=== PATIENT | male | born 1970 | race American Indian/Alaskan Native ===

== ENCOUNTER 2019-11-04 09:34 | Outpatient (CLI) | payer OTHER | END 2019-11-04 09:35 | disposition home or self-care (01) | LOC: LABHHL 09:34 | PROVIDERS: ATTEND Family Medicine | DX: R07.9 Chest pain, unspecified (principal) | CPT/HCPCS: 36415; 84484 ==

== ENCOUNTER 2020-08-12 15:21 | Inpatient (IN) | payer OTHER ==
[2020-08-12] MEDS ORDERED: HEPARIN 1,000 UNIT/1 ML VIAL IV ONE (15:24)
[2020-08-12] MEDS ORDERED: SODIUM CHLORIDE 0.9% 1000 ML 1,000 ML IV ONE (15:24)
[2020-08-12] MEDS ORDERED: MORPHINE 4 MG/1 ML INJ IV ONE (15:25)
--- NOTE | 2020-08-12 15:28 | Emergency Department Report ---
ED Chest Pain HPI - General Stated Complaint: STEMI PUI?: No Time Seen by Provider: 08/12/20 15:24 Source: patient, EMS - History of Present Illness Initial Comments: Patient is a 50-year-old F [place] male with past medical history of hypertension and tobacco use who is presenting with chest pain. Patient states he just got off work and was on his way home and started having chest pain. Chest pain started approximately 30 to 40 minutes prior to his arrival. States he did have some associated shortness of breath and mild diaphoresis. EMS transmitted EKG which does not appear as though the patient is having a STEMI. Patient states he has had some mild shortness chest pain or shortness of breath with exertion for the past 3 to 4 days. Severity scale (0 -10): 6 Quality: tightness, heaviness Consistency: constant Improves With: nothing re: diaphoresis. denies: nausea, vomting Other Symptoms: denies: cough, fever, syncope, rash, acid taste in mouth Treatments Prior to Arrival: aspirin, oxygen - Related Data Home Medications Medication Instructions Recorded Confirmed Last Taken Aspirin 325 mg PO DAILY 01/04/14 01/04/14 01/04/14 Metoprolol [Lopressor TAB] 50 mg PO BID 01/04/14 01/04/14 01/04/14 Simvastatin 10 mg PO HS 01/04/14 01/04/14 01/04/13 lisinopriL [Zestril TAB] 20 mg PO BID 01/04/14 01/04/14 01/04/13 Previous Rx's Medication Instructions Recorded Last Taken Type Lisinopril/Hydrochlorothiazide 1 tab PO QDAY #90 tablet 01/04/14 Unknown Rx [Zestoretic 20-25 mg] Allergies Allergy/AdvReac Type Severity Reaction Status Date / Time No Known Allergies Allergy Unverified 01/04/14 02:23 Heart Score - HEART Score History: Highly suspicious EKG: Significant ST-depression Age: 45-65 Risk factors: 1-2 risk factors Troponin: < normal limit HEART Score: 6 ED Review of Systems ROS: Stated complaint: STEMI Other details as noted in HPI Comment: All other systems reviewed and negative ED Past Medical Hx - Past Medical History Hx Hypertension: Yes (noncompliant with meds) - Social History Smoking Status: Current Every Day Smoker Substance Use Type: Marijuana, Non Opiate Pain - Medications Home Medications: Home Medications Medication Instructions Recorded Confirmed Last Taken Type Aspirin 325 mg PO DAILY 01/04/14 01/04/14 01/04/14 History Lisinopril/Hydrochlorothiazide 1 tab PO QDAY #90 tablet 01/04/14 Unknown Rx [Zestoretic 20-25 mg] Metoprolol [Lopressor TAB] 50 mg PO BID 01/04/14 01/04/14 01/04/14 History Simvastatin 10 mg PO HS 01/04/14 01/04/14 01/04/13 History lisinopriL [Zestril TAB] 20 mg PO BID 01/04/14 01/04/14 01/04/13 History ED Physical Exam - General General appearance: alert, in no apparent distress - Head Head exam: Present: atraumatic, normocephalic - Eye Eye exam: Present: normal appearance, PERRL, EOMI - ENT ENT exam: Present: mucous membranes moist - Neck Neck exam: Present: normal inspection - Respiratory Respiratory exam: Present: normal lung sounds bilaterally. Absent: respiratory distress, wheezes, rales, rhonchi - Cardiovascular Cardiovascular Exam: Present: regular rate, normal rhythm. Absent: systolic murmur, diastolic murmur, rubs, gallop - GI/Abdominal GI/Abdominal exam: Present: soft, normal bowel sounds - Rectal Rectal exam: Present: deferred - Extremities Exam Extremities exam: Present: normal inspection - Back Exam Back exam: Present: normal inspection - Neurological Exam Neurological exam: Present: alert, oriented X3 - Psychiatric Psychiatric exam: Present: normal affect, normal mood - Skin Skin exam: Present: warm, dry, intact, normal color. Absent: rash ED Course - Reevaluation(s) Reevaluation #1: 08/12/20 15:31 Dr Mata has been alerted to the patient being here. Patient will be transferred to the hospitalist service after the patient is stable from the [facility]. SANJAY score - Sanjay Score Age > 65: (0) No Aspirin use within the Past 7 Days: (1) Yes 3 or more CAD Risk Factors: (0) No 2 or more Angina events in past 24 hrs: (1) Yes Known CAD with more than 50% Stenosis: (0) No Elevated Cardiac Markers: (0) No ST Deviation Greater than 0.5mm: (1) Yes SANJAY Score: 3 ED Medical Decision Making - EKG Data 08/12/20 15:28 EKG prior to patient's arrival does show a STEMI at 1514. This was transmitted to the elementary school librarian calibration laboratory technician for interventional cardiology Dr. Bell. EKG performed here shows sinus rhythm with a rate of 77. [place] is normal intervals are normal. There appears to be ST elevation in the inferior leads with mild ST depression in leads I and aVL. Critical care attestation.: If time is entered above; I have spent that time in minutes in the direct care of this critically ill patient, excluding procedure time. ED Disposition Clinical Impression: STEMI (ST elevation myocardial infarction) Qualifiers: Involved coronary artery: unspecified coronary artery Qualified Code(s): I21.3 - ST elevation (STEMI) myocardial infarction of unspecified site Disposition: OP ADMIT IP TO THIS HOSP Is pt being admited?: Yes Does the pt Need Aspirin: No Condition: Stable Time of Disposition: 15:32
[2020-08-12 15:46] LABS: Basophils # (Auto) 0.1 K/mm3 (0.0-0.1); Basophils % (Auto) 0.7 % (0.0-1.8); Eosinophils % (Auto) 0.5 % (0.0-4.3); Hematocrit 37.7 % (35.5-45.6); Hemoglobin 12.3 gm/dl (11.8-15.2); Lymphocytes # (Auto) 3.1 K/mm3 (1.2-5.4); Lymphocytes % (Auto) 34.3 % (13.4-35.0); Mean Corpuscular HGB Conc 33 % (32-34); Mean Corpuscular Volume 79 fl (84-94); Monocytes # (Auto) 0.9 K/mm3 (0.0-0.8); Monocytes % (Auto) 9.8 % (0.0-7.3); Platelet Count 241 K/mm3 (140-440); Red Blood Count 4.79 M/mm3 (3.65-5.03); Red Cell Distribution Width 16.8 % (13.2-15.2)
[2020-08-12 15:55] LABS: INR 1.06 (0.87-1.13)
[2020-08-12 15:56] LABS: Partial Thromboplastin Time 25.9 Sec. (24.2-36.6)
[2020-08-12] MEDS ORDERED: HEPARIN 10,000 UNITS/10 ML VIAL IV ONE (16:00)
[2020-08-12] MEDS: fentaNYL 100 MCG/2 ML INJ ONE ×2 (16:03→16:09)
[2020-08-12] MEDS: MIDAZOLAM 2 MG/2 ML INJ ONE ×2 (16:03→16:09)
[2020-08-12] MEDS: LIDOCAINE (2%) 20 MG/1 ML VIAL 20 ML MDV INFILTRATI ONE ×2 (16:05→16:09)
--- NOTE | 2020-08-12 16:07 | XRay Report ---
CHEST 1 VIEW 08/12/2020 3:49 PM INDICATION / CLINICAL INFORMATION: chest pain. COMPARISON: 01/04/2014 FINDINGS: SUPPORT DEVICES: None. HEART / MEDIASTINUM: No significant abnormality. LUNGS / PLEURA: No significant pulmonary or pleural abnormality. No pneumothorax. There is suboptimal inspiration. ADDITIONAL FINDINGS: No significant additional findings. IMPRESSION: 1. No acute findings. Signer Name: Scott Fletcher MD Signed: 08/12/2020 4:02 PM Workstation Name: [id number]
[2020-08-12] MEDS: VERAPAMIL 5 MG/2 ML INJ ONE ×2 (16:09→16:10)
[2020-08-12] MEDS: NITROGLYCERIN SYRINGE 3 ML ONE ×2 (16:09→16:23)
[2020-08-12] MEDS: HEPARIN 10,000 UNITS/10 ML VIAL ONE ×3 (16:09→16:56)
[2020-08-12] MEDS: HEPARIN/NS 5000 UNIT/500ML 1,000 ML IR ONE ×2 (16:09→16:23)
[2020-08-12] MEDS ORDERED: TIROFIBAN/NS 12,500 MCG/250 ML BAG IV ONE (16:12)
[2020-08-12 16:15] LABS: BUN/Creatinine Ratio 8; Blood Urea Nitrogen 10 mg/dL (9-20); Calcium 9.2 mg/dL (8.4-10.2); Creatine Kinase MB 1.4 ng/mL (0.0-4.0); Hemolysis Index 5
[2020-08-12] MEDS ORDERED: ONDANSETRON 4 MG/2 ML INJ ONE (16:19)
[2020-08-12] MEDS ORDERED: ATROPINE 0.1% (1 MG/10 ML) CARDIAC SYRINGE ONE (16:25)
[2020-08-12] MEDS ORDERED: NITROGLYCERIN SYRINGE 3 ML ONE (16:25)
[2020-08-12] MEDS ORDERED: SODIUM CHLORIDE 0.9% 1000 ML 1,000 ML ONE (16:28)
[2020-08-12] MEDS ORDERED: POTASSIUM CHLORIDE ER 20 MEQ TAB PO ONE (16:32)
[2020-08-12] MEDS ORDERED: HEPARIN/NS 5000 UNIT/500ML 500 ML IR ONE (16:35)
[2020-08-12] MEDS ORDERED: TICAGRELOR 90 MG TAB ONE (16:46)
[2020-08-12] MEDS ORDERED: HYDROcodone/ACETAMINOPHEN 5-325 MG TAB PO PRN (16:57)
[2020-08-12] MEDS ORDERED: TIROFIBAN/NS 12,500 MCG/250 ML BAG IV SCH (17:00)
--- NOTE | 2020-08-12 17:06 | Consultation ---
History of Present Illness Consult date: 08/12/20 Requesting physician: CASSANDRA NICHOLS Consult reason: chest pain History of present illness: Patient is a 50-year-old male with a history of hypertension and smoking. Patient presented via EMS with acute onset of chest pain. 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 No particular aggravating factors no particular relief factors. Started having diaphoresis. Called EMT and was noted to have acute inferior ST elevation AR. Patient was taken to the [facility] and had primary PCI of RCA and PCI of the circumflex. Post PCI patient is doing better and being admitted to the CCU.. Past History Past Medical History: hypertension Past Surgical History: No surgical history Social history: smoking Family history: CAD Medications and Allergies Allergies Allergy/AdvReac Type Severity Reaction Status Date / Time No Known Allergies Allergy Unverified 01/04/14 02:23 Home Medications Medication Instructions Recorded Confirmed Last Taken Type Aspirin 325 mg PO DAILY 01/04/14 01/04/14 01/04/14 History Lisinopril/Hydrochlorothiazide 1 tab PO QDAY #90 tablet 01/04/14 Unknown Rx [Zestoretic 20-25 mg] Metoprolol [Lopressor TAB] 50 mg PO BID 01/04/14 01/04/14 01/04/14 History Simvastatin 10 mg PO HS 01/04/14 01/04/14 01/04/13 History lisinopriL [Zestril TAB] 20 mg PO BID 01/04/14 01/04/14 01/04/13 History Active Meds: Active Medications Hydrocodone Bitart/Acetaminophen ([place] 5/325) 1 each PO Q6H PRN PRN Reason: Pain, Moderate (4-6) Alprazolam (Xanax) 0.25 mg PO Q8H PRN PRN Reason: Anxiety Aspirin (Baby Aspirin) 81 mg PO QDAY LORI Atorvastatin Calcium (Lipitor) 80 mg PO QHS LORI Carvedilol (Coreg) 6.25 mg PO BID LORI Sodium Chloride (Nacl 0.9% 1000 Ml) 1,000 mls @ 42 mls/hr IV ONCE ONE Stop: 08/13/20 15:12 Last Admin: 08/12/20 15:40 Dose: 42 mls/hr Documented by: Sodium Chloride (Nacl 0.9% 1000 Ml) 1,000 mls @ 125 mls/hr IV DIRECT LORI Tirofiban/Sodium Chloride (Aggrastat Drip (12.5 Mg/250 Ml)) 12,500 mcg in 250 mls @ 0 mls/hr IV DIRECT LORI; Protocol Pantoprazole Sodium (Protonix) 40 mg PO QDAC LORI Ticagrelor (Brilinta) 90 mg PO BID LORI Review of Systems All systems: negative (As mentioned in H&P) Physical Examination Vital Signs Pulse Resp 85 19 08/12/20 15:26 08/12/20 15:26 General appearance: no acute distress HEENT: Positive: Normocephaly Neck: Positive: neck supple Cardiac: Positive: Reg Rate and Rhythm Lungs: Positive: clear to auscultation Neuro: Positive: Grossly Intact Abdomen: Positive: Unremarkable Male genitourinary: Positive: deferred Extremities: Present: normal Results 08/12/20 15:27 08/12/20 15:27 Cardiac Enzymes 08/12/20 Range/Units 15:27 CK-MB (CK-2) 1.4 (0.0-4.0) ng/mL Coagulation 08/12/20 Range/Units 15:27 PT 14.0 (12.2-14.9) Sec. INR 1.06 (0.87-1.13) APTT 25.9 (24.2-36.6) Sec. CBC 08/12/20 Range/Units 15:27 WBC 9.0 (4.5-11.0) K/mm3 RBC 4.79 (3.65-5.03) M/mm3 Hgb 12.3 (11.8-15.2) gm/dl Hct 37.7 (35.5-45.6) % Plt Count 241 (140-440) K/mm3 Lymph # (Auto) 3.1 (1.2-5.4) K/mm3 [place] # (Auto) 0.9 H (0.0-0.8) K/mm3 Eos # (Auto) 0.0 (0.0-0.4) K/mm3 Baso # (Auto) 0.1 (0.0-0.1) K/mm3 Comprehensive Metabolic Panel 08/12/20 Range/Units 15:27 Sodium 141 (137-145) mmol/L Potassium 3.0 L (3.6-5.0) mmol/L Chloride 102.9 (98-107) mmol/L Carbon Dioxide 23 (22-30) mmol/L BUN 10 (9-20) mg/dL Creatinine 1.2 (0.8-1.3) mg/dL Glucose 155 H (75-100) mg/dL Calcium 9.2 (8.4-10.2) mg/dL EKG interpretations - Telemetry EKG Rhythm: Sinus Rhythm (Acute inferior ST elevation AR with reciprocal anterior ST depression) Assessment and Plan Impression 1. Acute inferior ST elevation AR 2. Status post primary PCI of the totally occluded right coronary artery 3. Coronary angioplasty status status post PCI of the mid circumflex in the same setting 4. Hypertension 5. Hyperlipidemia 6. Hypokalemia 7. Family history of premature CAD Plan 1. Dual antiplatelet therapy for 1 year 2. Aggrastat for 18 hours 3. Routine adjuvant guideline mediated pharmacotherapy post AR/post PCI 4. Replace potassium 5. Today 6. Smoking cessation
[2020-08-12] MEDS ORDERED: ALUM-MAG HYDROXIDE-SIMETHICONE 200-200-20MG/5ML ORAL LIQD 30 ML ONE (17:10)
--- NOTE | 2020-08-12 17:33 | History and Physical Report ---
History of Present Illness Date of examination: 08/12/20 Date of admission: 08/12/20 Chief complaint: chest pain History of present illness: Patient is a 50-year-old male with a history of hypertension not on any medications and smoking presented via EMS with acute onset of chest pain. Patient states he was having intermittent chest pain for a week and that was ex ersional. Apparently today after he returned from work and while at home resting noticed severe substernal chest pain radiating to his back along with diaphoresis. No particular aggravating factors no particular relief factors. Called EMT and was noted to have acute inferior ST elevation AR. Patient was taken to the [facility] and had primary PCI of RCA and PCI of the circumflex. Post PCI patient was admitted to the CCU for further stabilization and management. Review of systems: Constitutional: no fever, no chills, no weight loss Ears, eyes, nose, mouth and throat: no nasal congestion, no nasal discharge, no sinus pressure, no vision change, no red eye. Neck: No neck pain or rigidity. Cardiovascular: + chest pain, no orthopnea, no palpitations, no leg swelling Respiratory: No shortness of breath, no cough, no congestion, no wheezing Gastrointestinal: no abdominal pain, no nausea, no vomiting Genitourinary : no dysuria, no hematuria Musculoskeletal: no joint swelling or muscle ache Integumentary: no rash, no pruritis Neurological: no parathesias, no numbness, no tingling Endocrine: no cold or heat intolerance, no polyuria or polydipsia Hematologic/Lymphatic: no easy bruising, no easy bleeding, no gland swelling Allergic/Immunologic: no urticaria, no angioedema. Past History Past Medical History: hypertension Past Surgical History: No surgical history Social history: smoking Family history: CAD Medications and Allergies Allergies Allergy/AdvReac Type Severity Reaction Status Date / Time No Known Allergies Allergy Unverified 01/04/14 02:23 Home Medications Medication Instructions Recorded Confirmed Last Taken Type Aspirin 325 mg PO DAILY 01/04/14 01/04/14 01/04/14 History Lisinopril/Hydrochlorothiazide 1 tab PO QDAY #90 tablet 01/04/14 Unknown Rx [Zestoretic 20-25 mg] Metoprolol [Lopressor TAB] 50 mg PO BID 01/04/14 01/04/14 01/04/14 History Simvastatin 10 mg PO HS 01/04/14 01/04/14 01/04/13 History lisinopriL [Zestril TAB] 20 mg PO BID 01/04/14 01/04/14 01/04/13 History Active Meds: Active Medications Hydrocodone Bitart/Acetaminophen ([place] 5/325) 1 each PO Q6H PRN PRN Reason: Pain, Moderate (4-6) Alprazolam (Xanax) 0.25 mg PO Q8H PRN PRN Reason: Anxiety Aspirin (Baby Aspirin) 81 mg PO QDAY LORI Atorvastatin Calcium (Lipitor) 80 mg PO QHS LORI Carvedilol (Coreg) 6.25 mg PO BID LORI Sodium Chloride (Nacl 0.9% 1000 Ml) 1,000 mls @ 42 mls/hr IV ONCE ONE Stop: 08/13/20 15:12 Last Admin: 08/12/20 15:40 Dose: 42 mls/hr Documented by: Sodium Chloride (Nacl 0.9% 1000 Ml) 1,000 mls @ 125 mls/hr IV DIRECT LORI Tirofiban/Sodium Chloride (Aggrastat Drip (12.5 Mg/250 Ml)) 12,500 mcg in 250 mls @ 0 mls/hr IV DIRECT LORI; Protocol Pantoprazole Sodium (Protonix) 40 mg PO QDAC LORI Ticagrelor (Brilinta) 90 mg PO BID LORI Exam - Physical Exam Narrative exam: GENERAL: well-developed and well-nourished black male lying on bed appeared to be in no discomfort. HEENT: Normocephalic. Atraumatic. No conjunctival congestion or icterus. Patient has moist mucous membranes. NECK: Supple. Trachea midline. CHEST/LUNGS: Clear to auscultated bilaterally, breathing nonlabored. No wheezes crackles or rhonchi. HEART/CARDIOVASCULAR: Regular in rate and rhythm. S1 and S2 positive. ABDOMEN: Abdomen is soft, nontender. Patient has normal bowel sounds. SKIN: There is no rash. Warm and dry. NEURO: No focal motor deficit. Follows command. MUSCULOSKELETAL: No joint effusion or tenderness. EXTRIMITY: No edema, no cyanosis or clubbing. PSYCH: Cooperative. - Constitutional Vitals: Temp Pulse Resp BP Pulse Ox 79 21 134/74 100 08/12/20 15:46 08/12/20 15:46 08/12/20 15:46 08/12/20 15:46 HEART Score - HEART Score EKG: Significant ST-depression Age: 45-65 Risk factors: 1-2 risk factors Troponin: Troponin T < 0.010 ng/mL (0.00-0.029) 08/12/20 15:27 Troponin: < normal limit Results - Labs CBC & Chem 7: 08/13/20 07:24 08/13/20 07:24 Labs: Abnormal lab results 08/12/20 08/12/20 Range/Units 15:27 15:27 MCV 79 L (84-94) fl MCH 26 L (28-32) pg RDW 16.8 H (13.2-15.2) % [place] % (Auto) 9.8 H (0.0-7.3) % [place] # (Auto) 0.9 H (0.0-0.8) K/mm3 Potassium 3.0 L (3.6-5.0) mmol/L Glucose 155 H (75-100) mg/dL - Imaging and Cardiology Chest x-ray: report reviewed (no infiltrates) Assessment and Plan Acute inferior ST elevation AR EKG Rhythm: Sinus Rhythm (Acute inferior ST elevation AR with reciprocal anterior ST depression) -s/p PCI of the totally occluded right coronary artery and mid circumflex -Continue aspirin statin Brilinta - Aggrastat for 18 hours Hypertension, resume home meds Hyperlipidemia, continue statin Hypokalemia, replete Tobacco abuse, smoking cessation counseling done DVT prophylaxis, Lovenox The high probability of a clinically significant, sudden or life threatening deterioration of the [CVS] system(s) required my full and direct attention, intervention and personal management. The aggregate critical care time was [34] minutes. This time is in addition to time spent performing reported procedures but includes the following: [x] Data Review and interpretation [x] Patient assessment and monitoring of vital signs [x] Documentation [x] Medication orders and management
--- NOTE | 2020-08-12 17:46 | Cardiac Catherization Report ---
CORONARY ANGIOGRAM AND PERCUTANEOUS INTERVENTION REPORT PROCEDURES PERFORMED: 1. Selective left and right coronary angiogram. 2. Left ventriculogram. 3. Successful percutaneous intervention of the totally occluded right coronary artery in the setting of acute inferior ST-elevation myocardial infarction. 4. Successful percutaneous intervention of critical stenosis of the mid circumflex. LOKIE ENGINEER: Dr. Rafael Bell. INDICATION: Acute inferior ST elevation RI. PROCEDURE START TIME: 1558 hours. PROCEDURE END TIME: 1648 hours. TOTAL SEDATION TIME: 50 minutes. I certify that Versed and fentanyl was given under my supervision. The patient was continuously monitored while on sedation and I supervised the administration of the moderate sedation. The patient tolerated moderate sedation well. PROCEDURE DETAILS: 1. The patient was prepped and draped in a sterile fashion after informed consent. 2. The right groin was anesthetized using local Lidocaine infiltration. 3. The right femoral artery was entered using the Seldinger technique, followed by the placement of a 6-Belgian sheath. 4. Selective left and right coronary angiography was performed using 6-Belgian Turner catheters. Angiograms were done in multiple projections. 5. Selective left ventricular angiography was done using a 6-Belgian pigtail catheter. Left ventricular angiography was performed in the right anterior oblique projection. 6. The catheters were withdrawn, the sheath removed, and hemostasis was achieved. 7. The patient was transferred to the post cardiac catheterization unit in stable condition. There were no complications, equipment malfunction, or technical difficulties. FINDINGS: HEMODYNAMICS: AO 119/81, LV 113/18, LVEDP was 27. Left ventriculogram done in third-degree CERDA projection shows mildly reduced LV systolic function, EF 40-45%. ANGIOGRAM DETAILS: 1. Left main is angiographically normal. 2. LAD: The LAD is angiographically normal. 3. Circumflex, eccentric ectatic 80% hazy stenosis. 4. The RCA is a large dominant highly tortuous 100% occluded proximally. IMPRESSION: Significant two-vessel coronary artery disease including 100% occluded right coronary artery and 80% hazy stenosis of the circumflex. PLAN: Proceed with PCI of the right coronary artery and if possible PCI of the circumflex. PERCUTANEOUS INTERVENTION DETAILS: Intravenous heparin was used to maintain therapeutic ACT. Intravenous Aggrastat have also initiated. An AR1 guide catheter was then used to engage the right coronary artery. A BMW wire was used to cross the lesion of the right coronary. After initial predilatation about 4.0 x 33 mm Xience drug-eluting stent was deployed across the stenosis. This was postdilated with a 4.0 balloon with excellent angiographic results. No residual thrombus or dissection was noted. The guide was then exchanged for an XB 3.5 guide and the BMW wire was advanced to the circumflex. A 4.0 x 18 mm Xience drug-eluting stent was deployed across the stenosis with excellent results. This was again postdilated with a 4.0 balloon. There was some spasm proximally and distal to the stent, but the patient was hemodynamically stable and spasm was improving with nitroglycerin. So, we decided to stop the procedure. Guide was removed. Sheath removed and TR band applied. The patient was given 180 mg of Brilinta. IMPRESSION: 1. Status post successful percutaneous intervention of the totally occluded right coronary artery with the deployment of a Xience drug-eluting stent. Status post successful deployment of a drug-eluting stent and 80% stenosis of the mid circumflex. 2. Culprit lesion proximal right coronary artery. Preprocedure SANJAY flow 0. Preprocedure stenosis percentage is 100%. 3. Stent deployed 4.0 x 33 mm Xience drug-eluting stent. 4. Postprocedure stenosis and SANJAY flow 0% and SANJAY 3 flow. 5. Second lesion mid circumflex. 6. Preprocedure stenosis and SANJAY flow, 80% hazy with a 2-3 flow. 7. Stent deployed 4.0 x 18 mm Xience drug-eluting stent. 8. Postprocedure SANJAY flow and stenosis, SANJAY 3 flow with 0% stenosis. PLAN: 1. Aspirin for life. 2. Brilinta for 1 year, preferably more. 3. Aggrastat for 18 hours. 4. Routine adjuvant pharmacotherapy post-PCI. 5. Routine radial artery sheath care. JOB# [id number] RR/NTS
[2020-08-12] MEDS: PANTOPRAZOLE 40 MG TAB PO SCH (18:14)
[2020-08-12] MEDS: ALPRAZolam 0.25 MG TAB PO PRN (18:21)
[2020-08-12] MEDS: TICAGRELOR 90 MG TAB PO SCH (22:28)
[2020-08-12] MEDS: carvediloL 6.25 MG TAB PO SCH (22:33)
[2020-08-13] MEDS: SODIUM CHLORIDE 0.9% 1000 ML 1,000 ML IV SCH ×3 (00:33→19:29)
[2020-08-13] MEDS ORDERED: MORPHINE 4 MG/1 ML INJ IV PRN (00:52)
--- NOTE | 2020-08-13 01:56 | XRay Report ---
CHEST 1 VIEW INDICATION / CLINICAL INFORMATION: post pci. COMPARISON: 08/12/2020 FINDINGS: SUPPORT DEVICES: None. HEART / MEDIASTINUM: No significant abnormality. LUNGS / PLEURA: No significant pulmonary or pleural abnormality. No pneumothorax. ADDITIONAL FINDINGS: No significant additional findings. IMPRESSION: 1. No acute findings. No interval change. Signer Name: Marci Mayer MD Signed: 08/13/2020 1:52 AM Workstation Name: [id number]
[2020-08-13 08:15] LABS: Basophils % (Auto) 0.3 % (0.0-1.8); Hematocrit 35.2 % (35.5-45.6); Hemoglobin 11.4 gm/dl (11.8-15.2); Lymphocytes # (Auto) 0.6 K/mm3 (1.2-5.4); Mean Corpuscular HGB Conc 33 % (32-34); Mean Corpuscular Volume 79 fl (84-94); Monocytes # (Auto) 0.7 K/mm3 (0.0-0.8); Monocytes % (Auto) 7.7 % (0.0-7.3); Platelet Count 193 K/mm3 (140-440); Red Blood Count 4.42 M/mm3 (3.65-5.03); Red Cell Distribution Width 16.8 % (13.2-15.2)
[2020-08-13 09:03] LABS: Creatine Kinase MB 95.3 ng/mL (0.0-4.0)
[2020-08-13 09:04] LABS: BUN/Creatinine Ratio 10; Blood Urea Nitrogen 9 mg/dL (9-20); Calcium 8.9 mg/dL (8.4-10.2); Hemolysis Index 11
[2020-08-13] MEDS ORDERED: ONDANSETRON 4 MG/2 ML INJ IV PRN (09:33)
--- NOTE | 2020-08-13 09:44 | Consultation ---
History of Present Illness - Reason for Consult Consult date: 08/13/20 STEMI Requesting physician: CASSANDRA NICHOLS - History of Present Illness 50 y/o male admitted last night with inferior UT. Taken to [facility] and had PCI. EKG changes resolved. Had some chest pain last night, given morphine and has not had any more since. Complains of nausea this am. Most recent Trop is 2. Remainder is negative. Past History Past Medical History: hypertension Past Surgical History: No surgical history Social history: smoking Family history: CAD Medications and Allergies Allergies Allergy/AdvReac Type Severity Reaction Status Date / Time No Known Allergies Allergy Unverified 01/04/14 02:23 Home Medications Medication Instructions Recorded Confirmed Last Taken Type Aspirin 325 mg PO DAILY 01/04/14 01/04/14 01/04/14 History Lisinopril/Hydrochlorothiazide 1 tab PO QDAY #90 tablet 01/04/14 Unknown Rx [Zestoretic 20-25 mg] Metoprolol [Lopressor TAB] 50 mg PO BID 01/04/14 01/04/14 01/04/14 History Simvastatin 10 mg PO HS 01/04/14 01/04/14 01/04/13 History lisinopriL [Zestril TAB] 20 mg PO BID 01/04/14 01/04/14 01/04/13 History Active Meds: Active Medications Hydrocodone Bitart/Acetaminophen ([place] 5/325) 1 each PO Q6H PRN PRN Reason: Pain, Moderate (4-6) Last Admin: 08/13/20 00:30 Dose: 1 each Documented by: Alprazolam (Xanax) 0.25 mg PO Q8H PRN PRN Reason: Anxiety Last Admin: 08/12/20 18:21 Dose: 0.25 mg Documented by: Aspirin (Baby Aspirin) 81 mg PO QDAY [facility] Atorvastatin Calcium (Lipitor) 80 mg PO QHS [facility] Last Admin: 08/12/20 22:33 Dose: 80 mg Documented by: Carvedilol (Coreg) 6.25 mg PO BID [facility] Last Admin: 08/12/20 22:33 Dose: 6.25 mg Documented by: Sodium Chloride (Nacl 0.9% 1000 Ml) 1,000 mls @ 42 mls/hr IV ONCE ONE Stop: 08/13/20 15:12 Last Admin: 08/12/20 15:40 Dose: 42 mls/hr Documented by: Sodium Chloride (Nacl 0.9% 1000 Ml) 1,000 mls @ 125 mls/hr IV DIRECT LORI Last Admin: 08/13/20 00:33 Dose: 125 mls/hr Documented by: Tirofiban/Sodium Chloride (Aggrastat Drip (12.5 Mg/250 Ml)) 12,500 mcg in 250 mls @ 12.94 mls/hr IV DIRECT LORI; Protocol Stop: 08/13/20 12:20 Morphine Sulfate (Morphine) 4 mg IV Q3H PRN PRN Reason: Chest Pain Last Admin: 08/13/20 01:40 Dose: 4 mg Documented by: Ondansetron HCl (Zofran) 4 mg IV Q6H PRN PRN Reason: Nausea And Vomiting Pantoprazole Sodium (Protonix) 40 mg PO QDAC [facility] Last Admin: 08/12/20 18:14 Dose: 40 mg Documented by: Ticagrelor (Brilinta) 90 mg PO BID [facility] Last Admin: 08/12/20 22:28 Dose: Not Given Documented by: Review of Systems All systems: negative Exam - Constitutional Vitals: Temp Pulse Resp BP Pulse Ox 98.2 F 82 11 L 149/81 100 08/13/20 08:00 08/13/20 08:00 08/13/20 08:00 08/13/20 08:00 08/13/20 07:00 General appearance: Present: no acute distress, well-nourished - EENT Eyes: Present: PERRL, EOM intact ENT: hearing intact, clear oral mucosa - Neck Neck: Present: supple, normal ROM - Respiratory Respiratory: bilateral: CTA - Cardiovascular Rhythm: regular Heart Sounds: Present: S1 & S2 Results - Labs CBC & Chem 7: 08/13/20 07:24 08/13/20 07:24 Labs: Abnormal lab results 08/12/20 08/12/20 08/13/20 Range/Units 15:27 15:27 07:24 Hgb 11.4 L (11.8-15.2) gm/dl Hct 35.2 L (35.5-45.6) % MCV 79 L 79 L (84-94) fl MCH 26 L 26 L (28-32) pg RDW 16.8 H 16.8 H (13.2-15.2) % Lymph % (Auto) 7.0 L (13.4-35.0) % [place] % (Auto) 9.8 H 7.7 H (0.0-7.3) % Lymph # (Auto) 0.6 L (1.2-5.4) K/mm3 [place] # (Auto) 0.9 H (0.0-0.8) K/mm3 Seg Neutrophils % 85.0 H (40.0-70.0) % Seg Neutrophils # 7.8 H (1.8-7.7) K/mm3 Potassium 3.0 L (3.6-5.0) mmol/L Glucose 155 H (75-100) mg/dL Total Creatine Kinase (55-170) units/L CK-MB (CK-2) (0.0-4.0) ng/mL CK-MB (CK-2) Rel Index (0-4) Troponin T (0.00-0.029) ng/mL 08/13/20 Range/Units 07:24 Hgb (11.8-15.2) gm/dl Hct (35.5-45.6) % MCV (84-94) fl MCH (28-32) pg RDW (13.2-15.2) % Lymph % (Auto) (13.4-35.0) % [place] % (Auto) (0.0-7.3) % Lymph # (Auto) (1.2-5.4) K/mm3 [place] # (Auto) (0.0-0.8) K/mm3 Seg Neutrophils % (40.0-70.0) % Seg Neutrophils # (1.8-7.7) K/mm3 Potassium 5.3 H D (3.6-5.0) mmol/L Glucose 127 H (75-100) mg/dL Total Creatine Kinase 954 H (55-170) units/L CK-MB (CK-2) 95.3 H (0.0-4.0) ng/mL CK-MB (CK-2) Rel Index 9.9 H (0-4) Troponin T 2.050 H* D (0.00-0.029) ng/mL - Imaging and Cardiology Chest x-ray: image reviewed (clear) Assessment and Plan 50 y/o male with inferior STEMI, s/p PCI 1. Finish Aggrastat drip 2. Once done, will discuss with cards, but should be stable for transfer to tele floor 3. Nursing asked about IVF's but these were ordered by cardiology so I asked her to clarify with them if they felt these were still needed 4. elevated K this am, suggest repeating labs this afternoon 5. ASA, statin, plavix, beta winston and maggy inhibitor therapy, presumed patient will get ECHO prior to discharge 6. Will sign off once out of unit 7. Lifestyle changes recommended.
[2020-08-13 09:49] LABS: Chol/HDL Ratio 3.07 %; HDL Cholesterol 54 mg/dL (40-59); LDL Cholesterol,Direct 110 mg/dL (50-130)
[2020-08-13] MEDS: carvediloL 6.25 MG TAB PO SCH ×2 (09:50→21:07)
[2020-08-13] MEDS: TICAGRELOR 90 MG TAB PO SCH ×2 (09:50→21:07)
[2020-08-13] MEDS: PANTOPRAZOLE 40 MG TAB PO SCH (09:51)
[2020-08-13] MEDS: ASPIRIN 81 MG TAB CHEW PO SCH (09:51)
[2020-08-13] MEDS: ALPRAZolam 0.25 MG TAB PO PRN (09:55)
--- NOTE | 2020-08-13 12:53 | Progress Note ---
Assessment and Plan 1. Acute inferior ST elevation [place] s/p primary PCI of RCA. Also had PCI of mid circumflex 2. Hypertension 3. Hyperlipidemia 4. Hypokalemia: Improved. 7. Family history of premature CAD Plan 1. Dual antiplatelet therapy for 1 year 2. Aggrastat for 18 hours 3. Routine adjuvant guideline mediated pharmacotherapy post IL/post PCI 4. Check Echo 5. Likely discharge tomorrow if stable. 6. Smoking cessation Subjective Date of service: 08/13/20 Interval history: No further chest pain Objective Vital Signs Temp Pulse Pulse Resp BP Pulse Ox 08/13/20 12:00 98.1 F 65 66 7 L 142/82 100 08/13/20 11:00 76 12 145/79 100 08/13/20 10:00 59 L 17 150/75 100 08/13/20 09:50 70 150/75 08/13/20 09:00 149/81 100 08/13/20 08:00 98.2 F 75 82 15 149/81 100 08/13/20 07:00 60 0 L 131/84 100 08/13/20 06:00 60 14 135/73 100 08/13/20 05:00 83 13 120/62 100 08/13/20 04:00 97.5 F L 74 8 L 120/62 100 08/13/20 03:00 74 12 127/73 100 08/13/20 02:00 69 10 L 115/66 100 08/13/20 01:00 56 L 16 130/88 100 08/13/20 00:30 14 08/13/20 00:00 98.1 F 68 12 133/75 100 08/12/20 23:00 72 10 L 130/70 99 08/12/20 22:33 77 133/77 08/12/20 22:00 78 11 L 133/77 100 08/12/20 21:00 94 H 14 147/86 100 08/12/20 20:00 97.9 F 92 H 14 139/85 100 08/12/20 19:00 99 H 9 L 130/76 100 08/12/20 18:00 110 H 12 172/101 98 08/12/20 17:58 100 08/12/20 17:50 111 H 08/12/20 15:46 79 21 134/74 100 08/12/20 15:30 85 21 130/79 97 08/12/20 15:26 85 19 - Physical Examination HEENT: Positive: Normocephaly Neck: Positive: neck supple Cardiac: Positive: Reg Rate and Rhythm Lungs: Positive: clear to auscultation Neuro: Positive: Grossly Intact Abdomen: Positive: Unremarkable Extremities: Present: normal - Labs and Meds Cardiac Enzymes 08/12/20 08/13/20 Range/Units 15:27 07:24 CK-MB (CK-2) 1.4 95.3 H (0.0-4.0) ng/mL Coagulation 08/12/20 Range/Units 15:27 PT 14.0 (12.2-14.9) Sec. INR 1.06 (0.87-1.13) APTT 25.9 (24.2-36.6) Sec. Lipids 08/13/20 Range/Units 07:24 Triglycerides 61 (2-149) mg/dL Cholesterol 166 (50-199) mg/dL HDL Cholesterol 54 (40-59) mg/dL Cholesterol/HDL Ratio 3.07 % CBC 08/12/20 08/13/20 Range/Units 15:27 07:24 WBC 9.0 9.2 (4.5-11.0) K/mm3 RBC 4.79 4.42 (3.65-5.03) M/mm3 Hgb 12.3 11.4 L (11.8-15.2) gm/dl Hct 37.7 35.2 L (35.5-45.6) % Plt Count 241 193 (140-440) K/mm3 Lymph # (Auto) 3.1 0.6 L (1.2-5.4) K/mm3 [place] # (Auto) 0.9 H 0.7 (0.0-0.8) K/mm3 Eos # (Auto) 0.0 0.0 (0.0-0.4) K/mm3 Baso # (Auto) 0.1 0.0 (0.0-0.1) K/mm3 Comprehensive Metabolic Panel 08/12/20 08/13/20 Range/Units 15:27 07:24 Sodium 141 139 (137-145) mmol/L Potassium 3.0 L 5.3 H D (3.6-5.0) mmol/L Chloride 102.9 105.8 (98-107) mmol/L Carbon Dioxide 23 27 (22-30) mmol/L BUN 10 9 (9-20) mg/dL Creatinine 1.2 0.9 (0.8-1.3) mg/dL Glucose 155 H 127 H (75-100) mg/dL Calcium 9.2 8.9 (8.4-10.2) mg/dL
[2020-08-13] MEDS: LOSARTAN 25 MG TAB PO SCH (18:39)
--- NOTE | 2020-08-13 20:10 | Progress Note ---
Assessment and Plan - Patient Problems (1) STEMI (ST elevation myocardial infarction) Current Visit: Yes Status: Acute Qualifiers: Involved coronary artery: unspecified coronary artery Qualified Code(s): I21.3 - ST elevation (STEMI) myocardial infarction of unspecified site Plan to address problem: Cardiology team consulted, status post stent placement, continue dual antiplatelet therapy, statin therapy, risk factor reduction, blood pressure control, The high probability of a clinically significant, sudden or life threatening deterioration of the [cardiac, renal, neuro] system(s) required my full and direct attention, intervention and personal management. The aggregate critical care time was [65] minutes. This time is in addition to time spent performing reported procedures but includes the following: [x] Data Review and interpretation [x] Patient assessment and monitoring of vital signs [x] Documentation [x] Medication orders and managementsupportive care. (2) Hypertension Current Visit: Yes Status: Acute Qualifiers: Hypertension type: essential hypertension Qualified Code(s): I10 - Essential (primary) hypertension Plan to address problem: Monitor blood pressure every shift, continue medical management (3) Hyperlipidemia Current Visit: Yes Status: Acute Qualifiers: Hyperlipidemia type: mixed hyperlipidemia Qualified Code(s): E78.2 - Mixed hyperlipidemia Plan to address problem: Statin therapy, risk factor reduction therapy, low-cholesterol diet. (4) DVT prophylaxis Current Visit: Yes Status: Acute Plan to address problem: SCD to bilateral lower extremities while in bed History Interval history: 50 YO Male HD #2 with STEMI S/P Cardiac Stent Placement on DAPT. Patient resting comfortably in bed. Patient denies fever, chills, chest pain, shortness of breath, no reported nursing events. Discharge planning in a.m. if medically stable. No decompensation overnight. Patient medically stable overnight. Hospitalist Physical - Constitutional Vitals: Temp Pulse Resp BP Pulse Ox 99.2 F 68 17 165/88 99 08/13/20 16:00 08/13/20 19:00 08/13/20 19:00 08/13/20 19:00 08/13/20 19:00 General appearance: Present: no acute distress, well-nourished - EENT Eyes: Present: PERRL, EOM intact ENT: hearing intact - Neck Neck: Present: supple - Respiratory Respiratory effort: normal Respiratory: bilateral: CTA - Cardiovascular Rhythm: regular Heart Sounds: Present: S1 & S2 - Extremities Extremities: no ischemia Peripheral Pulses: within normal limits - Abdominal General gastrointestinal: soft, non-tender, non-distended - Integumentary Integumentary: Present: clear, dry - Psychiatric Psychiatric: appropriate mood/affect, cooperative - Neurologic Neurologic: CNII-XII intact HEART Score - HEART Score EKG: Significant ST-depression Age: 45-65 Risk factors: 1-2 risk factors Troponin: Troponin T 2.050 ng/mL (0.00-0.029) H* D 08/13/20 07:24 Troponin: < normal limit Results - Labs CBC & Chem 7: 08/13/20 07:24 08/13/20 07:24 Labs: Laboratory Last Values WBC 9.2 K/mm3 (4.5-11.0) 08/13/20 07:24 RBC 4.42 M/mm3 (3.65-5.03) 08/13/20 07:24 Hgb 11.4 gm/dl (11.8-15.2) L 08/13/20 07:24 Hct 35.2 % (35.5-45.6) L 08/13/20 07:24 MCV 79 fl (84-94) L 08/13/20 07:24 MCH 26 pg (28-32) L 08/13/20 07:24 MCHC 33 % (32-34) 08/13/20 07:24 RDW 16.8 % (13.2-15.2) H 08/13/20 07:24 Plt Count 193 K/mm3 (140-440) 08/13/20 07:24 Lymph % (Auto) 7.0 % (13.4-35.0) L 08/13/20 07:24 [place] % (Auto) 7.7 % (0.0-7.3) H 08/13/20 07:24 Eos % (Auto) 0.0 % (0.0-4.3) 08/13/20 07:24 Baso % (Auto) 0.3 % (0.0-1.8) 08/13/20 07:24 Lymph # (Auto) 0.6 K/mm3 (1.2-5.4) L 08/13/20 07:24 [place] # (Auto) 0.7 K/mm3 (0.0-0.8) 08/13/20 07:24 Eos # (Auto) 0.0 K/mm3 (0.0-0.4) 08/13/20 07:24 Baso # (Auto) 0.0 K/mm3 (0.0-0.1) 08/13/20 07:24 Seg Neutrophils % 85.0 % (40.0-70.0) H 08/13/20 07:24 Seg Neutrophils # 7.8 K/mm3 (1.8-7.7) H 08/13/20 07:24 PT 14.0 Sec. (12.2-14.9) 08/12/20 15:27 INR 1.06 (0.87-1.13) 08/12/20 15:27 APTT 25.9 Sec. (24.2-36.6) 08/12/20 15:27 Sodium 139 mmol/L (137-145) 08/13/20 07:24 Potassium 5.3 mmol/L (3.6-5.0) H D 08/13/20 07:24 Chloride 105.8 mmol/L (98-107) 08/13/20 07:24 Carbon Dioxide 27 mmol/L (22-30) 08/13/20 07:24 Anion Gap 12 mmol/L 08/13/20 07:24 BUN 9 mg/dL (9-20) 08/13/20 07:24 Creatinine 0.9 mg/dL (0.8-1.3) 08/13/20 07:24 Estimated GFR > 60 ml/min 08/13/20 07:24 BUN/Creatinine Ratio 10 % 08/13/20 07:24 Glucose 127 mg/dL (75-100) H 08/13/20 07:24 Calcium 8.9 mg/dL (8.4-10.2) 08/13/20 07:24 Total Creatine Kinase 954 units/L (55-170) H 08/13/20 07:24 CK-MB (CK-2) 95.3 ng/mL (0.0-4.0) H 08/13/20 07:24 CK-MB (CK-2) Rel Index 9.9 (0-4) H 08/13/20 07:24 Troponin T 2.050 ng/mL (0.00-0.029) H* D 08/13/20 07:24 Triglycerides 61 mg/dL (2-149) 08/13/20 07:24 Cholesterol 166 mg/dL (50-199) 08/13/20 07:24 LDL Cholesterol Direct 110 mg/dL (50-130) 08/13/20 07:24 HDL Cholesterol 54 mg/dL (40-59) 08/13/20 07:24 Cholesterol/HDL Ratio 3.07 % 08/13/20 07:24 Blood Type A POSITIVE 08/12/20 15:27 Antibody Screen Negative 08/12/20 15:27 - Diagnostic Impressions Diagnostic Impressions: Echocardiogram 08/12/20 16:57 Transthoracic Echocardiogram Conclusions *Global left ventricular systolic function is normal. *The estimated ejection fraction is 55-60%. *Mild concentric left ventricular hypertrophy is observed. *There is mild mitral regurgitation. *There is mild tricuspid regurgitation. Findings Left Ventricle: The left ventricular chamber size is normal. Mild concentric left ventricular hypertrophy is observed. Global left ventricular systolic function is normal. The estimated ejection fraction is 55-60%. Left Atrium: The left atrial chamber size is normal. Right Ventricle: The right ventricular cavity size is normal. The right ventricular global systolic function is normal. Right Atrium: The right atrial cavity size is normal. Aortic Valve: The aortic valve is trileaflet. The aortic valve leaflets are mildly thickened. There is no evidence of aortic regurgitation. There is no evidence of aortic stenosis. Mitral Valve: The mitral valve leaflets are mildly thickened. There is mild mitral regurgitation. There is no evidence of mitral stenosis. Tricuspid Valve: There is mild tricuspid regurgitation. No pulmonary hypertension is noted. Pulmonic Valve: There is mild pulmonic regurgitation. Pericardium: There is no pericardial effusion. Aorta: There is no dilatation of the ascending aorta. There is no dilatation of the aortic root. Venous: The inferior vena cava appears normal in size. [place]/IV: Voiding Method Urinal IV Catheter Type [Right INT / Saline Lock Antecubital] IV Catheter Type [Left Peripheral IV Antecubital] Active Medications - Current Medications Current Medications: Generic Name Dose Route Start Last Admin Trade Name Freq PRN Reason Stop Dose Admin Hydrocodone Bitart/Acetaminophen 1 each 08/12/20 16:57 08/13/20 00:30 [place] 5/325 PO 1 each Q6H PRN Administration Pain, Moderate (4-6) Alprazolam 0.25 mg 08/12/20 17:00 08/13/20 09:55 Xanax PO 0.25 mg Q8H PRN Administration Anxiety Aspirin 81 mg 08/13/20 10:00 08/13/20 09:51 Baby Aspirin PO 81 mg QDAY LORI Administration Atorvastatin Calcium 80 mg 08/12/20 22:00 08/12/20 22:33 Lipitor PO 80 mg QHS LORI Administration Carvedilol 6.25 mg 08/12/20 22:00 08/13/20 09:50 Coreg PO 6.25 mg BID LORI Administration Sodium Chloride 1,000 mls @ 125 mls/hr 08/12/20 17:00 08/13/20 19:29 Nacl 0.9% 1000 Ml IV 125 mls/hr DIRECT LORI Administration Losartan Potassium 25 mg 08/13/20 18:00 08/13/20 18:39 Cozaar PO 25 mg QDAY LORI Administration Morphine Sulfate 4 mg 08/13/20 00:52 08/13/20 01:40 Morphine IV 4 mg Q3H PRN Administration Chest Pain Ondansetron HCl 4 mg 08/13/20 09:33 08/13/20 09:47 Zofran IV 4 mg Q6H PRN Administration Nausea And Vomiting Pantoprazole Sodium 40 mg 08/12/20 18:00 08/13/20 09:51 Protonix PO 40 mg QDAC L[facility]I Administration Ticagrelor 90 mg 08/12/20 22:00 08/13/20 09:50 Brilinta PO 90 mg BID L[facility]I Administration
[2020-08-14] MEDS: SODIUM CHLORIDE 0.9% 1000 ML 1,000 ML IV SCH (03:35)
[2020-08-14 06:25] LABS: Hematocrit 35.5 % (35.5-45.6); Hemoglobin 11.5 gm/dl (11.8-15.2)
[2020-08-14] MEDS: LOSARTAN 25 MG TAB PO SCH ×2 (08:14→10:13)
[2020-08-14] MEDS: PANTOPRAZOLE 40 MG TAB PO SCH (08:14)
[2020-08-14] MEDS: carvediloL 6.25 MG TAB PO SCH ×2 (08:14→10:13)
[2020-08-14] MEDS ORDERED: LOSARTAN 25 MG TAB PO ONE (10:00)
[2020-08-14] MEDS ORDERED: carvediloL 6.25 MG TAB PO ONE (10:00)
[2020-08-14] MEDS ORDERED: SIMETHICONE 80 MG CHEW TAB PO PRN (10:05)
[2020-08-14] MEDS: ASPIRIN 81 MG TAB CHEW PO SCH (10:13)
[2020-08-14] MEDS: TICAGRELOR 90 MG TAB PO SCH ×2 (10:13→21:20)
--- NOTE | 2020-08-14 11:06 | Progress Note ---
Assessment and Plan Acute inferior ST elevation [place] s/p primary PCI of RCA. Also s/p PCI of mid circumflex. On Brilinta and low dose aspirin LVEF 55-60% by echo Hypertension Hyperlipidemia Tobacco abuse Recommendations: Smoking cessation. Continue medical therapy for coronary artery disease. Okay for transfer to telemetry floor. Subjective Date of service: 08/14/20 Interval history: Patient is resting in bed comfortably. He denies chest pain. No distress noted. Objective Vital Signs Temp Pulse Pulse Pulse Pulse Pulse Pulse 08/14/20 10:14 69 08/14/20 10:13 77 08/14/20 09:30 81 08/14/20 09:00 84 08/14/20 08:30 88 08/14/20 08:14 64 08/14/20 08:00 98.5 F 72 08/14/20 07:30 71 08/14/20 07:00 69 08/14/20 06:55 72 08/14/20 06:30 65 08/14/20 06:01 74 08/14/20 05:50 76 08/14/20 05:00 93 H 08/14/20 04:31 62 08/14/20 04:00 98.4 F 77 08/14/20 03:43 79 08/14/20 03:30 68 08/14/20 03:00 74 08/14/20 02:30 71 08/14/20 02:00 63 08/14/20 01:31 52 L 08/14/20 01:00 85 08/14/20 00:30 74 08/14/20 00:01 57 L 08/14/20 00:00 08/13/20 23:55 75 08/13/20 23:49 61 08/13/20 23:48 97.8 F 79 08/13/20 23:00 55 L 08/13/20 22:00 66 08/13/20 21:07 73 08/13/20 21:00 59 L 08/13/20 20:12 67 08/13/20 20:00 71 08/13/20 19:00 68 08/13/20 18:39 72 08/13/20 18:00 71 08/13/20 17:00 63 08/13/20 16:57 77 75 80 08/13/20 16:00 99.2 F 66 61 08/13/20 15:00 76 08/13/20 14:00 60 08/13/20 13:00 69 08/13/20 12:00 98.1 F 65 66 Resp BP BP BP BP Pulse Ox 08/14/20 10:14 150/78 08/14/20 10:13 150/78 08/14/20 09:30 18 134/68 100 08/14/20 09:00 27 H 143/70 99 08/14/20 08:30 15 171/99 100 08/14/20 08:14 172/95 08/14/20 08:00 14 169/92 100 08/14/20 07:30 12 156/95 100 08/14/20 07:00 17 149/90 100 08/14/20 06:55 177/102 08/14/20 06:30 9 L 177/102 100 08/14/20 06:01 13 156/97 100 08/14/20 05:50 142/97 08/14/20 05:00 9 L 142/97 100 08/14/20 04:31 13 152/92 98 08/14/20 04:00 12 147/107 99 08/14/20 03:43 08/14/20 03:30 11 L 139/80 98 08/14/20 03:00 12 143/95 98 08/14/20 02:30 15 153/87 99 08/14/20 02:00 11 L 139/95 99 08/14/20 01:31 11 L 168/76 100 08/14/20 01:00 16 140/94 100 08/14/20 00:30 13 140/89 100 08/14/20 00:01 9 L 152/76 100 08/14/20 00:00 100 08/13/20 23:55 08/13/20 23:49 14 153/73 98 08/13/20 23:48 153/73 08/13/20 23:00 13 180/91 100 08/13/20 22:00 11 L 136/74 97 08/13/20 21:07 140/83 08/13/20 21:00 11 L 169/88 96 08/13/20 20:12 08/13/20 20:00 13 169/88 100 08/13/20 19:00 17 165/88 99 08/13/20 18:39 165/88 08/13/20 18:00 17 165/88 100 08/13/20 17:00 12 154/92 100 08/13/20 16:57 180/97 184/94 187/100 08/13/20 16:00 12 160/95 100 08/13/20 15:00 12 155/83 100 08/13/20 14:00 13 147/84 100 08/13/20 13:00 12 144/85 100 08/13/20 12:00 7 L 142/82 100 - Physical Examination General: No Apparent Distress HEENT: Positive: PERRL Neck: Positive: neck supple Cardiac: Positive: Reg Rate and Rhythm Lungs: Positive: Decreased Breath Sounds Neuro: Positive: Grossly Intact Extremities: Present: normal - Labs and Meds CBC 08/14/20 Range/Units 06:01 Hgb 11.5 L (11.8-15.2) gm/dl Hct 35.5 (35.5-45.6) % Plt Count 214 (140-440) K/mm3
[2020-08-14] MEDS: DOCUSATE SODIUM 100 MG CAP PO SCH ×2 (11:39→21:20)
--- NOTE | 2020-08-14 11:48 | Progress Note ---
Assessment and Plan 50 y/o male with inferior STEMI, s/p PCI 1. Increased Cozaar 2. Increased BB 3. Simethicone tablets 4. Transfer out of unit. Subjective Date of service: 08/14/20 Interval history: BP elevated as well as HR this morning. No chest pain. Only complains of bloating. Objective - Constitutional Vitals: Vital Signs - 12hr 08/13/20 08/13/20 08/13/20 23:48 23:49 23:55 Temperature 97.8 F Pulse Rate 61 75 Pulse Rate [ 79 Bilateral Dorsalis Pedis/ Posterior] Respiratory 14 Rate Blood Pressure 153/73 153/73 O2 Sat by Pulse 98 Oximetry 08/14/20 08/14/20 08/14/20 00:00 00:01 00:30 Temperature Pulse Rate 57 L 74 Pulse Rate [ Bilateral Dorsalis Pedis/ Posterior] Respiratory 9 L 13 Rate Blood Pressure 152/76 140/89 O2 Sat by Pulse 100 100 100 Oximetry 08/14/20 08/14/20 08/14/20 01:00 01:31 02:00 Temperature Pulse Rate 85 52 L 63 Pulse Rate [ Bilateral Dorsalis Pedis/ Posterior] Respiratory 16 11 L 11 L Rate Blood Pressure 140/94 168/76 139/95 O2 Sat by Pulse 100 100 99 Oximetry 08/14/20 08/14/20 08/14/20 02:30 03:00 03:30 Temperature Pulse Rate 71 74 68 Pulse Rate [ Bilateral Dorsalis Pedis/ Posterior] Respiratory 15 12 11 L Rate Blood Pressure 153/87 143/95 139/80 O2 Sat by Pulse 99 98 98 Oximetry 08/14/20 08/14/20 08/14/20 03:43 04:00 04:31 Temperature 98.4 F Pulse Rate 79 77 62 Pulse Rate [ Bilateral Dorsalis Pedis/ Posterior] Respiratory 12 13 Rate Blood Pressure 147/107 152/92 O2 Sat by Pulse 99 98 Oximetry 08/14/20 08/14/20 08/14/20 05:00 05:50 06:01 Temperature Pulse Rate 93 H 76 74 Pulse Rate [ Bilateral Dorsalis Pedis/ Posterior] Respiratory 9 L 13 Rate Blood Pressure 142/97 142/97 156/97 O2 Sat by Pulse 100 100 Oximetry 08/14/20 08/14/20 08/14/20 06:30 06:55 07:00 Temperature Pulse Rate 65 72 69 Pulse Rate [ Bilateral Dorsalis Pedis/ Posterior] Respiratory 9 L 17 Rate Blood Pressure 177/102 177/102 149/90 O2 Sat by Pulse 100 100 Oximetry 08/14/20 08/14/20 08/14/20 07:30 08:00 08:14 Temperature 98.5 F Pulse Rate 71 70 64 Pulse Rate [ Bilateral Dorsalis Pedis/ Posterior] Respiratory 12 14 Rate Blood Pressure 156/95 169/92 172/95 O2 Sat by Pulse 100 100 Oximetry 08/14/20 08/14/20 08/14/20 08:30 09:00 09:30 Temperature Pulse Rate 88 84 81 Pulse Rate [ Bilateral Dorsalis Pedis/ Posterior] Respiratory 15 27 H 18 Rate Blood Pressure 171/99 143/70 134/68 O2 Sat by Pulse 100 99 100 Oximetry 08/14/20 08/14/20 08/14/20 10:00 10:13 10:14 Temperature Pulse Rate 77 77 69 Pulse Rate [ Bilateral Dorsalis Pedis/ Posterior] Respiratory 10 L Rate Blood Pressure 150/78 150/78 150/78 O2 Sat by Pulse 100 Oximetry 08/14/20 08/14/20 10:30 11:00 Temperature Pulse Rate 71 62 Pulse Rate [ Bilateral Dorsalis Pedis/ Posterior] Respiratory 13 17 Rate Blood Pressure 162/84 162/83 O2 Sat by Pulse 100 100 Oximetry - Labs CBC & Chem 7: 08/14/20 06:01 08/13/20 07:24 Labs: Abnormal lab results 08/14/20 Range/Units 06:01 Hgb 11.5 L (11.8-15.2) gm/dl Medications & Allergies - Medications Allergies/Adverse Reactions: Allergies No Known Allergies Allergy (Unverified 01/04/14 02:23) Home Medications: Home Medications Medication Instructions Recorded Confirmed Last Taken Type Aspirin 325 mg PO DAILY 01/04/14 08/13/20 06/06/20 09:00 History Lisinopril/Hydrochlorothiazide 1 tab PO QDAY #90 tablet 01/04/14 08/13/20 06/06/20 09:00 Rx [Zestoretic 20-25 mg] Metoprolol [Lopressor TAB] 50 mg PO BID 01/04/14 08/13/20 06/06/20 09:00 History Simvastatin 10 mg PO HS 01/04/14 08/13/20 06/06/20 09:00 History lisinopriL [Zestril TAB] 20 mg PO BID 01/04/14 08/13/20 06/06/20 09:00 History Active Medications: Generic Name Dose Route Start Last Admin Trade Name Freq PRN Reason Stop Dose Admin Hydrocodone Bitart/Acetaminophen 1 each 08/12/20 16:57 08/13/20 00:30 [facility]mith 5/325 PO 1 each Q6H PRN Administration Pain, Moderate (4-6) Alprazolam 0.25 mg 08/12/20 17:00 08/13/20 09:55 Xanax PO 0.25 mg Q8H PRN Administration Anxiety Aspirin 81 mg 08/13/20 10:00 08/14/20 10:13 Baby Aspirin PO 81 mg QDAY LORI Administration Atorvastatin Calcium 80 mg 08/12/20 22:00 08/13/20 21:07 Lipitor PO 80 mg QHS LORI Administration Carvedilol 12.5 mg 08/14/20 22:00 Coreg PO BID [facility] Docusate Sodium 100 mg 08/14/20 11:00 Colace PO BID [facility] Labetalol HCl 10 mg 08/14/20 01:54 08/14/20 06:55 Labetalol IV 10 mg Q6H PRN Administration Hypertension Losartan Potassium 50 mg 08/15/20 10:00 Cozaar PO QDAY LORI Morphine Sulfate 4 mg 08/13/20 00:52 08/13/20 01:40 Morphine IV 4 mg Q3H PRN Administration Chest Pain Ondansetron HCl 4 mg 08/13/20 09:33 08/13/20 09:47 Zofran IV 4 mg Q6H PRN Administration Nausea And Vomiting Pantoprazole Sodium 40 mg 08/12/20 18:00 08/14/20 08:14 Protonix PO 40 mg QDAC LORI Administration Simethicone 80 mg 08/14/20 10:05 Mylicon PO Q6H PRN Gas pain Ticagrelor 90 mg 08/12/20 22:00 08/14/20 10:13 Brilinta PO 90 mg BID LORI Administration HEART Score - HEART Score EKG: Significant ST-depression Age: 45-65 Risk factors: 1-2 risk factors Troponin: Troponin T 2.050 ng/mL (0.00-0.029) H* D 08/13/20 07:24 Troponin: < normal limit
[2020-08-14 13:46] LABS: BUN/Creatinine Ratio 7; Blood Urea Nitrogen 7 mg/dL (9-20); Calcium 8.5 mg/dL (8.4-10.2); Hemolysis Index 7
--- NOTE | 2020-08-14 20:51 | Progress Note ---
Assessment and Plan - Patient Problems (1) STEMI (ST elevation myocardial infarction) Current Visit: Yes Status: Acute Qualifiers: Involved coronary artery: unspecified coronary artery Qualified Code(s): I21.3 - ST elevation (STEMI) myocardial infarction of unspecified site Plan to address problem: Cardiology team consulted, status post stent placement, continue dual antiplatelet therapy, statin therapy, risk factor reduction, blood pressure control, Patient transferred to telemetry today and downgraded from ICU. The high probability of a clinically significant, sudden or life threatening deterioration of the [cardiac, renal, neuro] system(s) required my full and direct attention, intervention and personal management. The aggregate critical care time was [65] minutes. This time is in addition to time spent performing reported procedures but includes the following: [x] Data Review and interpretation [x] Patient assessment and monitoring of vital signs [x] Documentation [x] Medication orders and managementsupportive care. (2) Hypertension Current Visit: Yes Status: Acute Qualifiers: Hypertension type: essential hypertension Qualified Code(s): I10 - Essential (primary) hypertension Plan to address problem: Monitor blood pressure every shift, continue medical management (3) Hyperlipidemia Current Visit: Yes Status: Acute Qualifiers: Hyperlipidemia type: mixed hyperlipidemia Qualified Code(s): E78.2 - Mixed hyperlipidemia Plan to address problem: Statin therapy, risk factor reduction therapy, low-cholesterol diet. (4) DVT prophylaxis Current Visit: Yes Status: Acute Plan to address problem: SCD to bilateral lower extremities while in bed History Interval history: 50 YO Male HD #3 with STEMI S/P Cardiac Stent Placement on DAPT. Patient resting comfortably in bed. Patient denies fever, chills, chest pain, shortness of breath, no reported nursing events. Patient experienced uncontrolled hypertension this a.m. Oral antihypertensive therapy adjusted. Patient transferred to telemetry. Discharge planning in a.m. if medically stable. No decompensation overnight. Patient medically stable overnight. Hospitalist Physical - Constitutional Vitals: Temp Pulse Resp BP Pulse Ox 98.0 F 64 17 205/109 100 08/14/20 20:35 08/14/20 20:35 08/14/20 20:35 08/14/20 20:35 08/14/20 20:35 General appearance: Present: no acute distress, well-nourished - EENT Eyes: Present: PERRL, EOM intact ENT: hearing intact - Neck Neck: Present: supple - Respiratory Respiratory effort: normal Respiratory: bilateral: CTA - Cardiovascular Rhythm: regular Heart Sounds: Present: S1 & S2 - Extremities Extremities: no ischemia Peripheral Pulses: within normal limits - Abdominal General gastrointestinal: soft, non-tender, non-distended - Integumentary Integumentary: Present: clear, dry - Psychiatric Psychiatric: appropriate mood/affect, cooperative - Neurologic Neurologic: CNII-XII intact HEART Score - HEART Score EKG: Significant ST-depression Age: 45-65 Risk factors: 1-2 risk factors Troponin: Troponin T 2.050 ng/mL (0.00-0.029) H* D 08/13/20 07:24 Troponin: < normal limit Results - Labs CBC & Chem 7: 08/14/20 06:01 08/14/20 12:48 Labs: Laboratory Last Values WBC 9.2 K/mm3 (4.5-11.0) 08/13/20 07:24 RBC 4.42 M/mm3 (3.65-5.03) 08/13/20 07:24 Hgb 11.5 gm/dl (11.8-15.2) L 08/14/20 06:01 Hct 35.5 % (35.5-45.6) 08/14/20 06:01 MCV 79 fl (84-94) L 08/13/20 07:24 MCH 26 pg (28-32) L 08/13/20 07:24 MCHC 33 % (32-34) 08/13/20 07:24 RDW 16.8 % (13.2-15.2) H 08/13/20 07:24 Plt Count 214 K/mm3 (140-440) 08/14/20 06:01 Lymph % (Auto) 7.0 % (13.4-35.0) L 08/13/20 07:24 [place] % (Auto) 7.7 % (0.0-7.3) H 08/13/20 07:24 Eos % (Auto) 0.0 % (0.0-4.3) 08/13/20 07:24 Baso % (Auto) 0.3 % (0.0-1.8) 08/13/20 07:24 Lymph # (Auto) 0.6 K/mm3 (1.2-5.4) L 08/13/20 07:24 [place] # (Auto) 0.7 K/mm3 (0.0-0.8) 08/13/20 07:24 Eos # (Auto) 0.0 K/mm3 (0.0-0.4) 08/13/20 07:24 Baso # (Auto) 0.0 K/mm3 (0.0-0.1) 08/13/20 07:24 Seg Neutrophils % 85.0 % (40.0-70.0) H 08/13/20 07:24 Seg Neutrophils # 7.8 K/mm3 (1.8-7.7) H 08/13/20 07:24 PT 14.0 Sec. (12.2-14.9) 08/12/20 15:27 INR 1.06 (0.87-1.13) 08/12/20 15:27 APTT 25.9 Sec. (24.2-36.6) 08/12/20 15:27 Sodium 140 mmol/L (137-145) 08/14/20 12:48 Potassium 3.6 mmol/L (3.6-5.0) D 08/14/20 12:48 Chloride 105.5 mmol/L (98-107) 08/14/20 12:48 Carbon Dioxide 27 mmol/L (22-30) 08/14/20 12:48 Anion Gap 11 mmol/L 08/14/20 12:48 BUN 7 mg/dL (9-20) L 08/14/20 12:48 Creatinine 1.0 mg/dL (0.8-1.3) 08/14/20 12:48 Estimated GFR > 60 ml/min 08/14/20 12:48 BUN/Creatinine Ratio 7 % 08/14/20 12:48 Glucose 118 mg/dL (75-100) H 08/14/20 12:48 Calcium 8.5 mg/dL (8.4-10.2) 08/14/20 12:48 Total Creatine Kinase 954 units/L (55-170) H 08/13/20 07:24 CK-MB (CK-2) 95.3 ng/mL (0.0-4.0) H 08/13/20 07:24 CK-MB (CK-2) Rel Index 9.9 (0-4) H 08/13/20 07:24 Troponin T 2.050 ng/mL (0.00-0.029) H* D 08/13/20 07:24 Triglycerides 61 mg/dL (2-149) 08/13/20 07:24 Cholesterol 166 mg/dL (50-199) 08/13/20 07:24 LDL Cholesterol Direct 110 mg/dL (50-130) 08/13/20 07:24 HDL Cholesterol 54 mg/dL (40-59) 08/13/20 07:24 Cholesterol/HDL Ratio 3.07 % 08/13/20 07:24 Blood Type A POSITIVE 08/12/20 15:27 Antibody Screen Negative 08/12/20 15:27 - Diagnostic Impressions Diagnostic Impressions: Echocardiogram 08/12/20 16:57 Transthoracic Echocardiogram Conclusions *Global left ventricular systolic function is normal. *The estimated ejection fraction is 55-60%. *Mild concentric left ventricular hypertrophy is observed. *There is mild mitral regurgitation. *There is mild tricuspid regurgitation. Findings Left Ventricle: The left ventricular chamber size is normal. Mild concentric left ventricular hypertrophy is observed. Global left ventricular systolic function is normal. The estimated ejection fraction is 55-60%. Left Atrium: The left atrial chamber size is normal. Right Ventricle: The right ventricular cavity size is normal. The right ventricular global systolic function is normal. Right Atrium: The right atrial cavity size is normal. Aortic Valve: The aortic valve is trileaflet. The aortic valve leaflets are mildly thickened. There is no evidence of aortic regurgitation. There is no evidence of aortic stenosis. Mitral Valve: The mitral valve leaflets are mildly thickened. There is mild mitral regurgitation. There is no evidence of mitral stenosis. Tricuspid Valve: There is mild tricuspid regurgitation. No pulmonary hypertension is noted. Pulmonic Valve: There is mild pulmonic regurgitation. Pericardium: There is no pericardial effusion. Aorta: There is no dilatation of the ascending aorta. There is no dilatation of the aortic root. Venous: The inferior vena cava appears normal in size. [place]/IV: Voiding Method Urinal IV Catheter Type [Right INT / [place] Antecubital] IV Catheter Type [Left Peripheral IV Antecubital] Active Medications - Current Medications Current Medications: Generic Name Dose Route Start Last Admin Trade Name Freq PRN Reason Stop Dose Admin Hydrocodone Bitart/Acetaminophen 1 each 08/12/20 16:57 08/13/20 00:30 [place] 5/325 PO 1 each Q6H PRN Administration Pain, Moderate (4-6) Alprazolam 0.25 mg 08/12/20 17:00 08/13/20 09:55 Xanax PO 0.25 mg Q8H PRN Administration Anxiety Aspirin 81 mg 08/13/20 10:00 08/14/20 10:13 Baby Aspirin PO 81 mg QDAY LORI Administration Atorvastatin Calcium 80 mg 08/12/20 22:00 08/13/20 21:07 Lipitor PO 80 mg QHS LORI Administration Carvedilol 12.5 mg 08/14/20 22:00 Coreg PO BID LORI Docusate Sodium 100 mg 08/14/20 11:00 08/14/20 11:39 Colace PO 100 mg BID LORI Administration Labetalol HCl 10 mg 08/14/20 01:54 08/14/20 13:39 Labetalol IV 10 mg Q6H PRN Administration Hypertension Losartan Potassium 50 mg 08/15/20 10:00 Cozaar PO QDAY LORI Ondansetron HCl 4 mg 08/13/20 09:33 08/13/20 09:47 Zofran IV 4 mg Q6H PRN Administration Nausea And Vomiting Pantoprazole Sodium 40 mg 08/12/20 18:00 08/14/20 08:14 Protonix PO 40 mg QDAC LORI Administration Simethicone 80 mg 08/14/20 10:05 Mylicon PO Q6H PRN Gas pain Ticagrelor 90 mg 08/12/20 22:00 08/14/20 10:13 Brilinta PO 90 mg BID LORI Administration
[2020-08-14] MEDS: carvediloL 12.5 MG TAB PO SCH (21:20)
[2020-08-15 09:36] VITALS: BP 196/106
--- NOTE | 2020-08-15 09:48 | Discharge Summary ---
Providers - Providers Date of Admission: 08/12/20 17:27 Attending physician: ARNOL BERMEO MD 08/12/20 Consult to Cardiac Rehabilitation [CONS] Routine Reason For Exam: post pci Primary care physician: MAGNETO SPECIALIST Hospitalization Condition: Stable Disposition: DC-01 TO HOME OR SELFCARE Time spent for discharge: 35 MINS Exam - Constitutional Vitals: Temp Pulse Resp BP Pulse Ox 98.6 F 68 18 196/106 100 08/15/20 08:00 08/15/20 08:00 08/15/20 08:00 08/15/20 08:00 08/15/20 08:00 Plan Activity: advance as tolerated, fall precautions Diet: low fat Special Instructions: record daily weights, record daily BP diary, smoking cessation Follow up with: DAFNE JOYA MD [Primary Care Provider] - 3-5 Days ALESHA FRIED MD [Staff Physician] - 7 Days Prescriptions: Simvastatin 40 mg PO QHS #30 tablet Aspirin [Aspirin BABY CHEW TAB] 81 mg PO QDAY #30 tab.chew Metoprolol [Lopressor TAB] 50 mg PO BID #60 Clopidogrel [Plavix] 75 mg PO QDAY #30 tablet Pantoprazole [Protonix TAB] 40 mg PO QDAC #30 tablet lisinopriL [Zestril TAB] 20 mg PO BID #60
[2020-08-15] MEDS: DOCUSATE SODIUM 100 MG CAP PO SCH (09:49)
[2020-08-15] MEDS: ASPIRIN 81 MG TAB CHEW PO SCH (09:49)
[2020-08-15] MEDS: carvediloL 12.5 MG TAB PO SCH (09:49)
[2020-08-15] MEDS: PANTOPRAZOLE 40 MG TAB PO SCH (09:51)
[2020-08-15] MEDS: TICAGRELOR 90 MG TAB PO SCH (09:51)
--- NOTE | 2020-08-15 09:59 | Progress Note ---
Assessment and Plan Acute inferior ST elevation NE s/p primary PCI of RCA. Also s/p PCI of mid circumflex. On Brilinta and low dose aspirin LVEF 55-60% by echo Hypertension Hyperlipidemia Tobacco abuse Recommendations: Advised smoking cessation. Continue medical therapy for coronary artery disease. Due to the expense of Brilinta, will replace with Plavix 75 mg daily. Okay for discharge home today. Subjective Date of service: 08/15/20 Interval history: Patient is resting in bed comfortably. He denies chest pain, denies shortness of breath and denies palpitations. Objective Vital Signs Temp Pulse Resp BP Pulse Ox 08/15/20 08:00 98.6 F 68 18 196/106 100 08/15/20 04:00 58 L 08/15/20 03:29 98.5 F 71 16 165/86 99 08/15/20 01:23 100 08/15/20 00:00 75 08/14/20 23:10 97.8 F 69 16 189/97 99 08/14/20 21:20 64 205/109 08/14/20 21:19 64 205/109 08/14/20 20:35 98.0 F 64 17 205/109 100 08/14/20 20:00 71 17 174/90 98 08/14/20 19:51 88 13 191/108 100 08/14/20 19:41 66 15 155/95 100 08/14/20 19:39 98.1 F 08/14/20 19:30 66 16 155/95 100 08/14/20 19:21 67 15 158/95 99 08/14/20 19:00 70 11 L 164/91 98 08/14/20 18:30 78 13 171/91 99 08/14/20 18:01 80 11 L 176/94 99 08/14/20 17:31 77 12 177/82 100 08/14/20 17:00 65 13 173/97 100 08/14/20 16:30 69 12 160/82 99 08/14/20 16:01 82 15 172/88 100 08/14/20 16:00 98.3 F 78 100 08/14/20 15:30 79 14 172/93 100 08/14/20 15:00 72 15 163/87 100 08/14/20 14:30 69 14 169/85 100 08/14/20 14:00 65 15 161/85 100 08/14/20 13:39 75 170/77 08/14/20 13:30 67 13 170/77 100 08/14/20 13:00 64 11 L 146/89 100 08/14/20 12:30 73 13 158/84 100 08/14/20 12:01 79 11 L 165/83 100 08/14/20 12:00 97.8 F 79 100 08/14/20 11:30 71 14 160/92 100 08/14/20 11:00 62 17 162/83 100 08/14/20 10:30 71 13 162/84 100 08/14/20 10:14 69 150/78 08/14/20 10:13 77 150/78 08/14/20 10:00 77 10 L 150/78 100 - Physical Examination General: No Apparent Distress HEENT: Positive: PERRL Neck: Positive: neck supple Cardiac: Positive: Reg Rate and Rhythm Lungs: Positive: Decreased Breath Sounds Neuro: Positive: Grossly Intact Abdomen: Positive: Unremarkable Extremities: Present: normal - Labs and Meds Comprehensive Metabolic Panel 08/14/20 Range/Units 12:48 Sodium 140 (137-145) mmol/L Potassium 3.6 D (3.6-5.0) mmol/L Chloride 105.5 (98-107) mmol/L Carbon Dioxide 27 (22-30) mmol/L BUN 7 L (9-20) mg/dL Creatinine 1.0 (0.8-1.3) mg/dL Glucose 118 H (75-100) mg/dL Calcium 8.5 (8.4-10.2) mg/dL
[2020-08-15] MEDS ORDERED: LOSARTAN 50 MG TAB PO SCH (10:00)
== END 2020-08-15 14:15 | disposition home or self-care (01) | DRG 247 ==
LOC: OR 15:21 → ED 15:21 → EDSTATUS 15:45 → ED 16:23 → CC1 17:27 → 4A 08-14 20:34
PROVIDERS: ADMIT Internal Medicine; ATTEND Internal Medicine
PROC: 027034Z Dilation of Coronary Artery, One Artery with Drug-eluting Intraluminal Device, Percutaneous Approach (ICD-10-PCS; principal; 2020-08-12)
PROC: 02C03ZZ Extirpation of Matter from Coronary Artery, One Artery, Percutaneous Approach (ICD-10-PCS; 2020-08-12)
PROC: 4A023N7 Measurement of Cardiac Sampling and Pressure, Left Heart, Percutaneous Approach (ICD-10-PCS; 2020-08-12)
PROC: B2111ZZ Fluoroscopy of Multiple Coronary Arteries using Low Osmolar Contrast (ICD-10-PCS; 2020-08-12)
DX: I21.3 ST elevation (STEMI) myocardial infarction of unspecified site (principal); E87.6 Hypokalemia; I10 Essential (primary) hypertension; Z79.82 Long term (current) use of aspirin; Z79.899 Other long term (current) drug therapy; F17.200 Nicotine dependence, unspecified, uncomplicated; Z82.49 Family history of ischemic heart disease and other diseases of the circulatory system; E78.5 Hyperlipidemia, unspecified
CPT/HCPCS: 36415; 71045; 80048; 80061; 82550; 82553; 84484; 85014; 85018; 85025; 85049; 85610; 85730; 86850; 86900; 86901; 92929; 92941; 93005; 93306; 93458; G0378; A9270-GY; C1725; C1769; C1874; C1887; C1894; C9601; C9606; J0461; J1644; J2250; J2270; J2405; J3010; J3246; J7030; Q9967